=== PATIENT | male | born 1990 | race Caucasian/White ===

== ENCOUNTER 2020-11-12 17:44 | Emergency (ER) | payer BC, OTHER ==
[2020-11-12 18:14] VITALS: BP 104/82; PULSE 78; TEMP 98.1; BMI 28.5
[2020-11-12 19:07] LABS: BASO % 3.5 % (0-2.0); EOS % 1.8 % (0-4.5); HEMATOCRIT 48.5 % (35.4-49); HEMOGLOBIN 16.6 GM/dl (11.7-16.9); LYMPH % 29.5 % (8-40); MCH 31.3 pg (25.7-33.7); MCHC 34.3 g/dl (32.0-35.9); MEAN CELL VOLUME 91.3 fl (80-96); MEAN PLT VOLUME 8.6 fl (7.5-11.1); MONO % 8.3 % (3.8-10.2); NEUT % 56.9 % (42.8-82.8); PLATELET COUNT 205 10^3/uL (134-434); RBC 5.31 M/mm3 (4.00-5.60); RDW 12.4 % (11.9-15.9); WHITE BLOOD COUNT 6.4 K/mm3 (4.0-10.8)
[2020-11-12 19:23] LABS: ACTIVATED PTT 26.3 SECONDS (25.2-36.5)
[2020-11-12 19:26] LABS: ALBUMIN 4.7 g/dl (3.4-5.0); BILIRUBIN,TOTAL 0.7 mg/dl (0.2-1); CALCIUM 9.1 mg/dl (8.5-10); CREATININE 1.2 mg/dl (0.55-1.3)
[2020-11-12 19:28] LABS: INR 0.97 (0.82-1.09); PROTHROMBIN TIME (PATIENT) 10.9 SEC (10.2-13.0)
[2020-11-12 22:41] LABS: HIV INTERPRETATION NEGATIVE (NEGATIVE)
== END 2020-11-12 21:05 | disposition home or self-care (01) ==
LOC: FER 17:44
DX: K62.5 Hemorrhage of anus and rectum (principal)
CPT/HCPCS: 36415; 74177-TC; 80053; 82272; 85025; 85610; 85730; 86850; 86900; 86901; 87389; 99285-25; Q9967